=== PATIENT | female | born 1990 | race Two or more races ===

== ENCOUNTER 2016-11-16 17:00 | Emergency (ER) | payer MEDICAID ==
[~2016-11-16] VITALS: Ht 154.9 cm; Wt 57.2 kg
[2016-11-16 17:11] VITALS: BP 118/74
[2016-11-16 17:36] LABS: Basophils # (auto) 0 uL; Basophils % (auto) 0.6 % (0.0-2.0); Eosinophils # (auto) 0.1 uL; Eosinophils % (auto) 1.2 % (0.0-7.0); Hemoglobin 12.9 g/dL (12.2-16.2); Lymphocytes # (auto) 1.9 uL; Lymphocytes % (auto) 25.5 % (10.0-50.0); Mean Corpuscular Hemoglobin 30.8 pg (28.0-32.0); Mean Corpuscular Volume 93.4 fL (80.0-100.0); Mean Platelet Volume 7.7 fL (7.4-10.4); Monocytes # (auto) 0.5 uL; Monocytes % (auto) 7.3 % (0.0-12.0); Neutrophils # (auto) 4.9 uL; Neutrophils % (auto) 65.4 % (37.0-80.0); Platelet Count (auto) 329 10^3/uL (140-450); Red Cell Distribution Width 13.9 % (11.6-16.0); White Blood Cell 7.5 10^3/uL (4.4-10.8)
[2016-11-16 18:05] LABS: Albumin 3.9 g/dL (3.4-5.0); BUN/Creatinine Ratio 13.8; Calcium 8.3 mg/dL (8.5-10.1); Potassium 3.9 mmol/L (3.5-5.1)
[2016-11-16 18:08] LABS: Bilirubin, Total 0.5 mg/dL (0.2-1.0); Total Protein 7.5 g/dL (6.4-8.2)
== END 2016-11-16 20:08 | disposition home or self-care (01) ==
LOC: ER 17:06
DX: O02.0 Blighted ovum and nonhydatidiform mole (principal); Z3A.09 9 weeks gestation of pregnancy
CPT/HCPCS: 36415; 76801; 80053; 81002; 84702; 85025

== ENCOUNTER 2016-11-18 17:33 | Emergency (ER) | payer MEDICAID ==
[~2016-11-18] VITALS: Ht 154.9 cm; Wt 56.7 kg
[2016-11-19 01:01] LABS: Urine RBC None Seen /hpf (0 - 4)
[2016-11-19 01:15] VITALS: BP 108/64
[2016-11-19 01:29] LABS: Urine Bilirubin Negative (Negative); Urine Blood Negative /uL (Negative); Urine Color Yellow (Yellow); Urine Glucose Normal (Normal); Urine Ketone Negative (Negative); Urine Nitrite Negative (Negative); Urine Squamous Epithelial Cell FEW /hpf (<5); Urine Urobilinogen Normal (Negative); Urine pH 6.5 (5.0-8.0)
== END 2016-11-19 01:13 | disposition home or self-care (01) ==
LOC: ER 17:41
DX: O03.9 Complete or unspecified spontaneous abortion without complication (principal); Z3A.09 9 weeks gestation of pregnancy
CPT/HCPCS: 36415; 76801; 81001; 84702

== ENCOUNTER 2018-04-08 16:42 | Emergency (ER) | payer MEDICAID ==
[~2018-04-08] VITALS: Ht 157.5 cm; Wt 59.0 kg
[2018-04-08 17:17] VITALS: BP 115/82
== END 2018-04-08 18:32 | disposition left against medical advice (07) ==
LOC: ER 16:42
DX: O26.899 Other specified pregnancy related conditions, unspecified trimester (principal); R10.9 Unspecified abdominal pain; Z3A.00 Weeks of gestation of pregnancy not specified

== ENCOUNTER 2021-04-11 22:32 | Inpatient (IN) | payer MEDICAID ==
[~2021-04-11] VITALS: Ht 157.5 cm; Wt 62.3 kg
[2021-04-11 23:28] LABS: Eosinophils # (auto) 0 10 ^3/uL (0-0.8); Eosinophils % (auto) 0.1 % (0.0-7.0); Hemoglobin 9.9 g/dL (12.2-16.2); Lymphocytes # (auto) 0.8 10 ^3/uL (0.4-5.4); Monocytes # (auto) 0.6 10 ^3/uL (0-1.3); Neutrophils # (auto) 9.7 10 ^3/uL (1.6-8.6)
[2021-04-11 23:29] LABS: Basophils # (auto) 0.1 10 ^3/uL (0-0.2); Basophils % (auto) 0.8 % (0.0-2.0); Hematocrit 27.6 % (36.0-46.0); Mean Corpuscular Hemoglobin 39.5 pg (28.0-32.0); Mean Corpuscular Hgb Conc. 35.9 g/dL (32.0-36.0); Mean Corpuscular Volume 109.9 fL (80.0-100.0); Neutrophils % (auto) 87.1 % (37.0-80.0); Nucleated Red Blood Cells % 0.4 %; Platelet Count (auto) 124 10^3/uL (140-450); Red Blood Cells 2.51 10^6/uL (4.0-5.20); Red Cell Distribution Width 16.1 % (11.8-14.3); White Blood Cell 11.2 10^3/uL (4.4-10.8)
[2021-04-11 23:43] LABS: INR 3.27 (0.9-1.15); Partial Thromboplastin Time 37.8 sec (23.0-31.2)
[2021-04-11 23:47] LABS: Alanine Aminotransferase 84 U/L (13-56); Albumin 3.1 g/dL (3.4-5.0); Amylase 136 U/L (25-115); Anion Gap 21 (5-15); Aspartate Aminotransferase 420 U/L (15-37); BUN/Creatinine Ratio 17.4; Blood Urea Nitrogen 32 mg/dL (7-18); Calcium 8.9 mg/dL (8.5-10.1); Carbon Dioxide 28 mmol/L (21-32); Chloride 75 mmol/L (98-107); GFR African American 42 mL/min; GFR Non-African American 35 mL/min; Glucose 92 mg/dL (74-106); Lipase 742 U/L (73-393); Sodium 124 mmol/L (136-145)
[2021-04-11 23:52] LABS: Alkaline Phosphatase 228 U/L (45-117); Bilirubin, Total 14.6 mg/dL (0.2-1.0); Total Protein 7.2 g/dL (6.4-8.2)
[2021-04-11 23:53] LABS: Lactic Acid w/Reflex 8.9 mmol/L (0.4-2.0)
[2021-04-11 23:55] LABS: Potassium 2.6 mmol/L (3.5-5.1)
[2021-04-12] MEDS ORDERED: FOLIC ACID 1 MG in D5W 5% 50 ML INJ ONE (00:15)
[2021-04-12] MEDS ORDERED: THIAMINE 100mg/ml INJ (200mg/2ml VIAL) IV ONE (00:15)
[2021-04-12] MEDS ORDERED: ONDANSETRON HCL 4 MG/2 ML VIAL IV ONE (00:15)
[2021-04-12] MEDS ORDERED: POTASSIUM CHLORIDE 20 MEQ in D5W/LACTATED RINGERS 1,000 ML IV SCH (00:15)
[2021-04-12] MEDS ORDERED: D5W/LACTATED RINGERS 1,000 ML IV ONE (00:45)
[2021-04-12] MEDS ORDERED: POTASSIUM CHL 20MEQ/100ML 100 ML IV ONE (00:45)
[2021-04-12] MEDS ORDERED: FOLIC ACID 1 MG TAB PO ONE (00:45)
[2021-04-12] MEDS ORDERED: LACTATED RINGER'S 1,000 ML IV ONE (03:15)
[2021-04-12] MEDS ORDERED: POTASSIUM CHL 20MEQ/100ML 200 ML IV ONE (03:30)
[2021-04-12] MEDS: MORPHINE SULF INJ 2 MG/ML SYRINGE 1ML IV PRN ×2 (03:32→09:34)
[2021-04-12] MEDS: ONDANSETRON HCL 4 MG/2 ML VIAL IV PRN ×2 (03:32→09:30)
[2021-04-12] MEDS: POTASSIUM CHL 20MEQ/100ML 100 ML IV SCH ×2 (03:33→06:25)
[2021-04-12] MEDS: levoFLOXacin 500MG 100 ML IV SCH (03:35)
[2021-04-12] MEDS: metroNIDAZOLE 500MG/100ML 100 ML IV SCH ×3 (03:36→22:10)
[2021-04-12] MEDS: PANTOPRAZOLE 40 MG/10 ML VIAL INJ IV SCH ×3 (06:27→22:03)
[2021-04-12 07:47] VITALS: BP 90/59
[2021-04-12 08:12] LABS: Albumin 2.4 g/dL (3.4-5.0); Calcium 8.1 mg/dL (8.5-10.1); Magnesium 2.3 mg/dL (1.6-2.6); Potassium 3.1 mmol/L (3.5-5.1)
[2021-04-12 08:15] LABS: BUN/Creatinine Ratio 19.5; Bilirubin, Total 13.1 mg/dL (0.2-1.0); Total Protein 5.8 g/dL (6.4-8.2)
[2021-04-12 08:19] LABS: Basophils # (auto) 0.1 10 ^3/uL (0-0.2); Basophils % (auto) 1.3 % (0.0-2.0); Eosinophils # (auto) 0 10 ^3/uL (0-0.8); Eosinophils % (auto) 0.2 % (0.0-7.0); Hematocrit 22.5 % (36.0-46.0); Hemoglobin 8.1 g/dL (12.2-16.2); Lymphocytes # (auto) 0.8 10 ^3/uL (0.4-5.4); Lymphocytes % (auto) 7.9 % (10.0-50.0); Mean Corpuscular Hgb Conc. 35.9 g/dL (32.0-36.0); Mean Corpuscular Volume 108.9 fL (80.0-100.0); Monocytes # (auto) 0.6 10 ^3/uL (0-1.3); Monocytes % (auto) 5.9 % (0.0-12.0); Neutrophils # (auto) 8.8 10 ^3/uL (1.6-8.6); Neutrophils % (auto) 84.7 % (37.0-80.0); Nucleated Red Blood Cells % 0.3 %; Platelet Count (auto) 96 10^3/uL (140-450); Red Blood Cells 2.07 10^6/uL (4.0-5.20); White Blood Cell 10.4 10^3/uL (4.4-10.8)
[2021-04-12] MEDS ORDERED: PHYTONADIONE(VitK) ORAL Susp 10mg/10ml(1mg/ml) PO SCH (10:30)
[2021-04-12 13:00] VITALS: BP 99/44
[2021-04-12 13:13] LABS: Urine Bacteria FEW /hpf (None Seen); Urine Blood 1+ /uL (Negative); Urine Hyaline Cast MANY /lpf (0 - 2); Urine Mucus FEW (None Seen); Urine Specific Gravity 1.023 (1.001-1.035); Urine WBC 55 /hpf (0 - 5); Urine WBC Clumps PRESENT /hpf (None Seen)
[2021-04-12 13:26] LABS: Creatinine, Urine 296 mg/dL (30.0-125.0); Sodium Urine 5 mmol/L (40-220)
[2021-04-12 13:27] LABS: Barbiturate Scree,Urine NEGATIVE (NEGATIVE); Benzodiazephine Screen, Urine NEGATIVE (NEGATIVE); Cannabinoid Screen, Urine POSITIVE (NEGATIVE); Cocaine Screen, Urine NEGATIVE (NEGATIVE); Opiate Scree,Urine POSITIVE (NEGATIVE); Phencyclidine Screen, Urine NEGATIVE (NEGATIVE)
[2021-04-12 13:35] LABS: Amphetamine Screen, Urine NEGATIVE (NEGATIVE)
[2021-04-12] MEDS: FOLIC ACID 1 MG, MULTIPLE VITAMIN 10 ML, MAGNESIUM SULF SDV 50% 8 MEQ, THIAMINE INJ 100... INJ SCH ×5 (14:15)
[2021-04-12] MEDS ORDERED: POTASSIUM CHL 20 Meq TABLET PO ONE (14:30)
[2021-04-12 17:00] VITALS: BP 115/53
[2021-04-12] MEDS ORDERED: LORazepam 0.5 MG TAB PO PRN (17:45)
[2021-04-12] MEDS: PHYTONADIONE(VitK) ORAL Susp 10mg/10ml(1mg/ml) PO SCH (18:30)
[2021-04-12] MEDS ORDERED: POTASSIUM CHL 20 Meq TABLET PO PRN (18:30)
[2021-04-12] MEDS ORDERED: SODIUM CHLORIDE 0.9% 1,000 ML IV ONE (20:15)
[2021-04-12] MEDS ORDERED: LORazepam 2MG/ML-1ML VIAL IV PRN ×3 (20:30→21:45)
[2021-04-12 22:00] VITALS: BP 115/60
[2021-04-13] VITALS (9 sets, daily range): BP systolic 90–127; BP diastolic 46–78
[2021-04-13] MEDS: GABAPENTIN 300 MG CAP PO SCH ×4 (01:15→22:24)
[2021-04-13] MEDS: metroNIDAZOLE 500MG/100ML 100 ML IV SCH ×3 (06:00→22:23)
[2021-04-13] MEDS: PANTOPRAZOLE 40 MG/10 ML VIAL INJ IV SCH ×3 (06:00→22:24)
[2021-04-13 08:51] LABS: Basophils # (auto) 0 10 ^3/uL (0-0.2); Eosinophils # (auto) 0.1 10 ^3/uL (0-0.8); Hemoglobin 7.6 g/dL (12.2-16.2); Lymphocytes # (auto) 0.8 10 ^3/uL (0.4-5.4); Monocytes # (auto) 0.9 10 ^3/uL (0-1.3); White Blood Cell 8.8 10^3/uL (4.4-10.8)
[2021-04-13 08:52] LABS: Basophils % (auto) 0.5 % (0.0-2.0); Eosinophils % (auto) 0.9 % (0.0-7.0); Hematocrit 20.5 % (36.0-46.0); Mean Corpuscular Hemoglobin 40.2 pg (28.0-32.0); Mean Corpuscular Hgb Conc. 37.1 g/dL (32.0-36.0); Mean Corpuscular Volume 108.5 fL (80.0-100.0); Neutrophils % (auto) 79.6 % (37.0-80.0); Nucleated Red Blood Cells % 0.5 %; Platelet Count (auto) 108 10^3/uL (140-450); Red Blood Cells 1.89 10^6/uL (4.0-5.20)
[2021-04-13] MEDS: levoFLOXacin 500MG 100 ML IV SCH (09:03)
[2021-04-13 09:07] LABS: BUN/Creatinine Ratio 23.9; Calcium 7.5 mg/dL (8.5-10.1); Potassium 3.9 mmol/L (3.5-5.1)
[2021-04-13 09:23] LABS: INR 2.81 (0.9-1.15); Partial Thromboplastin Time 42.5 sec (23.0-31.2)
[2021-04-13] MEDS ORDERED: PANTOPRAZOLE 40 MG TAB PO SCH (10:00)
[2021-04-13] MEDS: PHYTONADIONE(VitK) ORAL Susp 10mg/10ml(1mg/ml) PO SCH (10:00)
[2021-04-13] MEDS ORDERED: POLYETHYLENE GLYCOL 17 GM PWDR PO ONE (11:30)
[2021-04-13] MEDS ORDERED: LACTULOSE 20Gm/30ML SOLN PO ONE (11:30)
[2021-04-13] MEDS ORDERED: chlordiazePOXIDE HCL 25 MG CAP PO PRN (11:30)
[2021-04-13] MEDS: MIDODRINE HCL 10 MG TAB PO SCH ×2 (12:05→18:27)
[2021-04-13] MEDS: FOLIC ACID 1 MG, MULTIPLE VITAMIN 10 ML, MAGNESIUM SULF SDV 50% 8 MEQ, THIAMINE INJ 100... INJ SCH ×5 (13:58)
[2021-04-13 14:14] LABS: Eosinophils # (auto) 0.1 10 ^3/uL (0-0.8); Hemoglobin 8.3 g/dL (12.2-16.2); Lymphocytes # (auto) 0.8 10 ^3/uL (0.4-5.4)
[2021-04-13 14:16] LABS: Basophils # (auto) 0 10 ^3/uL (0-0.2); Basophils % (auto) 0.4 % (0.0-2.0); Eosinophils % (auto) 0.7 % (0.0-7.0); Lymphocytes % (auto) 7.7 % (10.0-50.0); Mean Corpuscular Hemoglobin 39.6 pg (28.0-32.0); Mean Corpuscular Hgb Conc. 36.3 g/dL (32.0-36.0); Monocytes # (auto) 0.9 10 ^3/uL (0-1.3); Monocytes % (auto) 8.7 % (0.0-12.0); Neutrophils # (auto) 8.6 10 ^3/uL (1.6-8.6); Neutrophils % (auto) 82.5 % (37.0-80.0); Nucleated Red Blood Cells % 0.6 %; Platelet Count (auto) 126 10^3/uL (140-450); Red Blood Cells 2.11 10^6/uL (4.0-5.20); Red Cell Distribution Width 15.9 % (11.8-14.3); White Blood Cell 10.4 10^3/uL (4.4-10.8)
[2021-04-13 14:22] LABS: Albumin 2.4 g/dL (3.4-5.0); Bilirubin, Direct 12.3 mg/dL (0-0.2)
[2021-04-13 14:25] LABS: Bilirubin, Total 16.5 mg/dL (0.2-1.0); Total Protein 6.1 g/dL (6.4-8.2)
[2021-04-13] MEDS ORDERED: MID10T PO (19:16)
[2021-04-13] MEDS ORDERED: LACT10SO3 PO (19:16)
[2021-04-13] MEDS ORDERED: PANT40T PO (19:16)
[2021-04-13] MEDS ORDERED: GABA300C10 PO (19:16)
[2021-04-13] MEDS ORDERED: THIA50CA PO (19:16)
[2021-04-13] MEDS ORDERED: FOLI1TAB6 PO (19:16)
[2021-04-13] MEDS ORDERED: METR500T PO (19:16)
[2021-04-13] MEDS ORDERED: LEVO500T31 PO (19:16)
[2021-04-14 11:08] LABS: Hepatitis A Ab IgM Negative; Hepatitis B Core IgM Negative; Hepatitis B Surface Antigen Negative (Negative); Hepatitis C Antibody Negative (Negative)
== END 2021-04-13 23:00 | disposition home health service (06) | DRG 282 ==
LOC: ER 22:32 → TELE 04-12 03:12 → TELE-WESTW 04-12 07:40
PROVIDERS: ADMIT Hospitalist; ATTEND Hospitalist
PROC: 30233K1 Transfusion of Nonautologous Frozen Plasma into Peripheral Vein, Percutaneous Approach (ICD-10-PCS; principal; 2021-04-13)
DX: K85.90 Acute pancreatitis without necrosis or infection, unspecified (principal); N17.0 Acute kidney failure with tubular necrosis; K76.7 Hepatorenal syndrome; K82.1 Hydrops of gallbladder; D68.9 Coagulation defect, unspecified; E87.70 Fluid overload, unspecified; E88.09 Other disorders of plasma-protein metabolism, not elsewhere classified; K70.11 Alcoholic hepatitis with ascites; E87.1 Hypo-osmolality and hyponatremia; K52.9 Noninfective gastroenteritis and colitis, unspecified; Z20.822 Contact with and (suspected) exposure to COVID-19; F10.20 Alcohol dependence, uncomplicated; E87.6 Hypokalemia; D64.9 Anemia, unspecified; F17.210 Nicotine dependence, cigarettes, uncomplicated; K76.0 Fatty (change of) liver, not elsewhere classified; Z79.899 Other long term (current) drug therapy
CPT/HCPCS: 36415; 74176; 76700; 80048; 80053; 80074; 80076; 80307; 80320; 81001; 82150; 82270; 82550; 82570; 83605; 83690; 83735; 84300; 84484; 84702; 85025; 85610; 85730; 86850; 86900; 86901; 87040; 87086; 87426; 93005; 96365; 96366; 96375; 99291; C9113; G0378; J1956; J2405; J3480; J3490; J7060

== ENCOUNTER 2021-04-16 22:21 | Emergency (ER) | payer MEDICAID ==
[~2021-04-16] VITALS: Ht 157.5 cm; Wt 61.7 kg
[~2021-04-16 22:21] MED LIST: FOLI1TAB6 PO; GABA300C10 PO; LACT10SO3 PO; LEVO500T31 PO; METR500T PO; MID10T PO; PANT40T PO; THIA50CA PO
[2021-04-16 23:00] LABS: Basophils # (auto) 0.1 10 ^3/uL (0-0.2); Eosinophils # (auto) 0 10 ^3/uL (0-0.8); Eosinophils % (auto) 0.2 % (0.0-7.0); Hemoglobin 9.2 g/dL (12.2-16.2); Nucleated Red Blood Cells % 0.3 %; Red Blood Cells 2.24 10^6/uL (4.0-5.20)
[2021-04-16 23:03] LABS: Basophils % (auto) 0.6 % (0.0-2.0); Hematocrit 25.1 % (36.0-46.0); Lymphocytes # (auto) 0.6 10 ^3/uL (0.4-5.4); Lymphocytes % (auto) 3.6 % (10.0-50.0); Mean Corpuscular Hgb Conc. 36.7 g/dL (32.0-36.0); Mean Corpuscular Volume 111.8 fL (80.0-100.0); Monocytes # (auto) 1.7 10 ^3/uL (0-1.3); Monocytes % (auto) 10.6 % (0.0-12.0); Platelet Count (auto) 182 10^3/uL (140-450); Red Cell Distribution Width 17.5 % (11.8-14.3); White Blood Cell 16.4 10^3/uL (4.4-10.8)
[2021-04-16 23:19] LABS: INR 3.34 (0.9-1.15); Partial Thromboplastin Time 45.4 sec (23.0-31.2)
[2021-04-16 23:35] LABS: Albumin 2.3 g/dL (3.4-5.0); Calcium 7.7 mg/dL (8.5-10.1); Potassium 3.7 mmol/L (3.5-5.1)
[2021-04-16 23:37] LABS: Bilirubin, Total 21.4 mg/dL (0.2-1.0)
[2021-04-17] MEDS ORDERED: OXYMETAZOLINE HCL 0.05 % NASAL SPRAY 15ML EACHNOSTRI ONE (00:15)
[2021-04-17] MEDS ORDERED: LACTATED RINGER'S 1,000 ML IV ONE (00:15)
[2021-04-17] MEDS ORDERED: LORazepam 2MG/ML-1ML VIAL ONE (03:43)
[2021-04-17] MEDS ORDERED: LORazepam 2MG/ML-1ML VIAL IV ONE (04:00)
[2021-04-17] MEDS ORDERED: levETIRAcetam 500 MG/5ML INJ IV ONE (04:47)
[2021-04-17] MEDS ORDERED: GABA300C10 PO (12:44)
[2021-04-17] MEDS ORDERED: LACT10SO3 PO (12:44)
[2021-04-17 12:46] VITALS: BP 102/58
== END 2021-04-17 13:25 | disposition home or self-care (01) ==
LOC: ER 22:24
DX: R04.0 Epistaxis (principal); K62.5 Hemorrhage of anus and rectum; D68.9 Coagulation defect, unspecified; R51.9 Headache, unspecified; Z87.442 Personal history of urinary calculi
CPT/HCPCS: 36415; 70450; 80053; 85025; 85610; 85730; 86850; 86900; 86901; 87426; 96361; 96365; 96375; 99285; J1953; J2060; J7060

== ENCOUNTER 2021-04-21 20:37 | Inpatient (IN) | payer MEDICAID ==
[~2021-04-21] VITALS: Ht 157.5 cm; Wt 80.4 kg
[2021-04-21] MEDS ORDERED: SODIUM CHLORIDE 0.9% 500 ML IVB ONE (21:00)
[2021-04-21 22:11] LABS: Eosinophils # (auto) 0 10 ^3/uL (0-0.8); Eosinophils % (auto) 0.1 % (0.0-7.0); Nucleated Red Blood Cells % 0.1 %; White Blood Cell 24.6 10^3/uL (4.4-10.8)
[2021-04-21 22:14] LABS: Basophils # (auto) 0.1 10 ^3/uL (0-0.2); Basophils % (auto) 0.3 % (0.0-2.0); Hematocrit 22.2 % (36.0-46.0); Hemoglobin 8.3 g/dL (12.2-16.2); Mean Corpuscular Hemoglobin 41.9 pg (28.0-32.0); Mean Corpuscular Hgb Conc. 37.3 g/dL (32.0-36.0); Mean Corpuscular Volume 112.2 fL (80.0-100.0); Monocytes # (auto) 1.5 10 ^3/uL (0-1.3); Neutrophils % (auto) 89.6 % (37.0-80.0); Platelet Count (auto) 235 10^3/uL (140-450); Red Blood Cells 1.98 10^6/uL (4.0-5.20)
[2021-04-21 22:15] LABS: Red Cell Distribution Width 21.6 % (11.8-14.3)
[2021-04-21 22:28] LABS: Albumin 1.9 g/dL (3.4-5.0); Calcium 7.6 mg/dL (8.5-10.1); Magnesium 1.7 mg/dL (1.6-2.6); Potassium 3.6 mmol/L (3.5-5.1)
[2021-04-21 22:32] LABS: Bilirubin, Total 18.5 mg/dL (0.2-1.0); INR 2.62 (0.9-1.15); Partial Thromboplastin Time 52.4 sec (23.0-31.2); Total Protein 5.8 g/dL (6.4-8.2)
[2021-04-21] MEDS ORDERED: NITROGLYCERIN 0.4 MG SL TAB SL PRN (23:30)
[2021-04-21] MEDS ORDERED: SODIUM CHLORIDE 0.9% 1,000 ML IV ONE (23:30)
[2021-04-21] MEDS ORDERED: POTASSIUM CHL 20 Meq TABLET PO ONE (23:30)
[2021-04-21] MEDS ORDERED: ONDANSETRON HCL 4 MG/2 ML VIAL IV PRN (23:30)
[2021-04-21] MEDS ORDERED: MORPHINE SULF INJ 2 MG/ML SYRINGE 1ML IV PRN (23:30)
[2021-04-21] MEDS ORDERED: LORazepam 2MG/ML-1ML VIAL IV PRN (23:30)
[2021-04-22 00:45] VITALS: BP 93/52
[2021-04-22 02:03] LABS: Urine Amorphous Crystal FEW /hpf (None Seen); Urine Bacteria FEW /hpf (None Seen); Urine Blood TRACE /uL (Negative); Urine Hyaline Cast MOD /lpf (0 - 2); Urine Mucus FEW (None Seen); Urine Specific Gravity 1.019 (1.001-1.035); Urine WBC 11 /hpf (0 - 5)
[2021-04-22 05:00] VITALS: BP 88/48
[2021-04-22 05:55] LABS: Basophils # (auto) 0 10 ^3/uL (0-0.2); Basophils % (auto) 0.2 % (0.0-2.0); Eosinophils # (auto) 0 10 ^3/uL (0-0.8); Hemoglobin 7.4 g/dL (12.2-16.2); Neutrophils # (auto) 17.4 10 ^3/uL (1.6-8.6); Nucleated Red Blood Cells % 0.1 %
[2021-04-22 05:57] LABS: Eosinophils % (auto) 0.2 % (0.0-7.0); Hematocrit 20.3 % (36.0-46.0); Lymphocytes # (auto) 0.9 10 ^3/uL (0.4-5.4); Lymphocytes % (auto) 4.5 % (10.0-50.0); Mean Corpuscular Hemoglobin 41.4 pg (28.0-32.0); Mean Corpuscular Hgb Conc. 36.3 g/dL (32.0-36.0); Mean Corpuscular Volume 114.2 fL (80.0-100.0); Monocytes # (auto) 1.3 10 ^3/uL (0-1.3); Monocytes % (auto) 6.6 % (0.0-12.0); Neutrophils % (auto) 88.5 % (37.0-80.0); Platelet Count (auto) 208 10^3/uL (140-450); Red Blood Cells 1.78 10^6/uL (4.0-5.20); White Blood Cell 19.7 10^3/uL (4.4-10.8)
[2021-04-22 06:09] LABS: Red Cell Distribution Width 21.8 % (11.8-14.3)
[2021-04-22 06:16] LABS: Potassium 3.9 mmol/L (3.5-5.1)
[2021-04-22 06:22] LABS: Albumin 1.7 g/dL (3.4-5.0); BUN/Creatinine Ratio 17.5; Total Protein 5.1 g/dL (6.4-8.2)
[2021-04-22 09:00] VITALS: BP 90/54
[2021-04-22] MEDS ORDERED: LACTULOSE 20Gm/30ML SOLN PO PRN (12:30)
[2021-04-22 13:00] VITALS: BP 93/50
[2021-04-22] MEDS: cefTRIAXone 1GM/50ML D5W 50 ML IV SCH (13:34)
[2021-04-22 17:00] VITALS: BP 92/51
[2021-04-22] MEDS ORDERED: LORazepam 2MG/ML-1ML VIAL IV PRN (22:45)
[2021-04-22 23:48] VITALS: BP 94/55
[2021-04-23 05:54] VITALS: BP 91/54
[2021-04-23 09:00] VITALS: BP 88/48
[2021-04-23] MEDS: cefTRIAXone 1GM/50ML D5W 50 ML IV SCH (09:42)
[2021-04-23] MEDS: PANTOPRAZOLE 40 MG/10 ML VIAL INJ IV SCH (11:37)
[2021-04-23] MEDS: methylPREDNISolone SOD SUCC 40 MG/ML VL IV SCH (11:37)
[2021-04-23] MEDS ORDERED: FOLIC ACID 1 MG, MULTIPLE VITAMIN 10 ML, MAGNESIUM SULF SDV 50% 8 MEQ, THIAMINE INJ 100... INJ SCH ×5 (12:00)
[2021-04-23 12:13] LABS: Basophils # (auto) 0.1 10 ^3/uL (0-0.2); Basophils % (auto) 0.7 % (0.0-2.0); Eosinophils # (auto) 0.1 10 ^3/uL (0-0.8); Eosinophils % (auto) 0.3 % (0.0-7.0); Hematocrit 20.9 % (36.0-46.0); Hemoglobin 7.4 g/dL (12.2-16.2); Lymphocytes # (auto) 0.8 10 ^3/uL (0.4-5.4); Lymphocytes % (auto) 4.7 % (10.0-50.0); Mean Corpuscular Hemoglobin 40.7 pg (28.0-32.0); Mean Corpuscular Hgb Conc. 35.4 g/dL (32.0-36.0); Mean Corpuscular Volume 114.9 fL (80.0-100.0); Monocytes # (auto) 1.2 10 ^3/uL (0-1.3); Monocytes % (auto) 6.8 % (0.0-12.0); Neutrophils # (auto) 15.9 10 ^3/uL (1.6-8.6); Neutrophils % (auto) 87.5 % (37.0-80.0); Platelet Count (auto) 208 10^3/uL (140-450); Red Blood Cells 1.82 10^6/uL (4.0-5.20); White Blood Cell 18.2 10^3/uL (4.4-10.8)
[2021-04-23 12:26] LABS: Potassium 3.9 mmol/L (3.5-5.1)
[2021-04-23 12:31] LABS: Albumin 1.6 g/dL (3.4-5.0); Bilirubin, Total 16.8 mg/dL (0.2-1.0); Calcium 7.1 mg/dL (8.5-10.1); Total Protein 5.3 g/dL (6.4-8.2)
[2021-04-23 13:00] VITALS: BP 89/39
[2021-04-23 17:00] VITALS: BP 98/59
[2021-04-23] MEDS: FUROSEMIDE 20 MG TAB PO SCH (18:48)
[2021-04-23] MEDS: SPIRONOLACTONE 25 MG TAB PO SCH (18:48)
[2021-04-23] MEDS ORDERED: PHYTONADIONE (VIT K)10 MG/ML 1ML VIAL SUBCUT ONE (19:00)
[2021-04-23] MEDS: chlordiazePOXIDE HCL 25 MG CAP PO PRN (20:06)
[2021-04-23 22:36] VITALS: BP 95/63
[2021-04-24] VITALS (7 sets, daily range): BP systolic 89–101; BP diastolic 52–63
[2021-04-24] MEDS: FUROSEMIDE 20 MG TAB PO SCH ×2 (05:13→17:54)
[2021-04-24] MEDS: SPIRONOLACTONE 25 MG TAB PO SCH ×2 (05:14→17:53)
[2021-04-24 07:33] LABS: Eosinophils # (auto) 0 10 ^3/uL (0-0.8); Hematocrit 22.4 % (36.0-46.0); Hemoglobin 7.9 g/dL (12.2-16.2); Mean Corpuscular Hemoglobin 40.5 pg (28.0-32.0); Mean Corpuscular Hgb Conc. 35.2 g/dL (32.0-36.0); Mean Corpuscular Volume 114.9 fL (80.0-100.0); Nucleated Red Blood Cells % 0.1 %; Platelet Count (auto) 203 10^3/uL (140-450); Red Blood Cells 1.95 10^6/uL (4.0-5.20)
[2021-04-24 07:37] LABS: Basophils # (auto) 0 10 ^3/uL (0-0.2); Basophils % (auto) 0.1 % (0.0-2.0); Lymphocytes # (auto) 8.7 10 ^3/uL (0.4-5.4); Lymphocytes % (auto) 46.4 % (10.0-50.0); Monocytes # (auto) 0.6 10 ^3/uL (0-1.3); Monocytes % (auto) 3.2 % (0.0-12.0); Neutrophils # (auto) 9.4 10 ^3/uL (1.6-8.6); Neutrophils % (auto) 50.3 % (37.0-80.0); White Blood Cell 18.7 10^3/uL (4.4-10.8)
[2021-04-24 07:38] LABS: Red Cell Distribution Width 22.6 % (11.8-14.3)
[2021-04-24 07:46] LABS: INR 2.83 (0.9-1.15)
[2021-04-24 07:51] LABS: Albumin 1.8 g/dL (3.4-5.0); BUN/Creatinine Ratio 26.8; Calcium 7.4 mg/dL (8.5-10.1); Potassium 4.1 mmol/L (3.5-5.1)
[2021-04-24 08:03] LABS: Bilirubin, Total 17.1 mg/dL (0.2-1.0); Total Protein 5.7 g/dL (6.4-8.2)
[2021-04-24] MEDS: PANTOPRAZOLE 40 MG/10 ML VIAL INJ IV SCH (09:19)
[2021-04-24] MEDS: cefTRIAXone 1GM/50ML D5W 50 ML IV SCH (09:19)
[2021-04-24] MEDS: methylPREDNISolone SOD SUCC 40 MG/ML VL IV SCH ×2 (09:20→21:40)
[2021-04-25 05:21] VITALS: BP 98/58
[2021-04-25] MEDS: SPIRONOLACTONE 25 MG TAB PO SCH ×2 (05:58→17:34)
[2021-04-25] MEDS: FUROSEMIDE 20 MG TAB PO SCH ×2 (05:59→17:37)
[2021-04-25 07:58] LABS: Albumin 1.7 g/dL (3.4-5.0); Calcium 7.3 mg/dL (8.5-10.1); Potassium 4.2 mmol/L (3.5-5.1)
[2021-04-25 08:04] LABS: BUN/Creatinine Ratio 34.8; Total Protein 5.5 g/dL (6.4-8.2)
[2021-04-25 09:00] VITALS: BP 90/57
[2021-04-25] MEDS: PANTOPRAZOLE 40 MG/10 ML VIAL INJ IV SCH (09:37)
[2021-04-25] MEDS: methylPREDNISolone SOD SUCC 40 MG/ML VL IV SCH ×2 (09:37→22:00)
[2021-04-25] MEDS: cefTRIAXone 1GM/50ML D5W 50 ML IV SCH (09:37)
[2021-04-25 13:00] VITALS: BP 95/56
[2021-04-25 17:00] VITALS: BP 103/70
[2021-04-25 22:00] VITALS: BP 97/58
[2021-04-26 05:00] VITALS: BP 93/55
[2021-04-26] MEDS: FUROSEMIDE 20 MG TAB PO SCH ×2 (06:15→17:49)
[2021-04-26] MEDS: SPIRONOLACTONE 25 MG TAB PO SCH ×2 (06:35→17:48)
[2021-04-26 07:25] LABS: Hematocrit 21.6 % (36.0-46.0); Hemoglobin 7.7 g/dL (12.2-16.2); Mean Corpuscular Hemoglobin 41.9 pg (28.0-32.0); Mean Corpuscular Hgb Conc. 35.8 g/dL (32.0-36.0); Mean Corpuscular Volume 117.1 fL (80.0-100.0); Platelet Count (auto) 176 10^3/uL (140-450); Red Blood Cells 1.84 10^6/uL (4.0-5.20); White Blood Cell 15.1 10^3/uL (4.4-10.8)
[2021-04-26 07:30] LABS: Red Cell Distribution Width 22.3 % (11.8-14.3)
[2021-04-26 07:32] LABS: Basophils % (manual) 0 (0.0-2.0); Blast Cells 0; Eosinophils % (manual) 0 (0-7); Metamyelocytes % 0; Myelocytes % 0; Promyelocytes % 0; Reactive Lymphocytes 0
[2021-04-26 07:38] LABS: Albumin 1.7 g/dL (3.4-5.0); Calcium 7.4 mg/dL (8.5-10.1); Magnesium 1.8 mg/dL (1.6-2.6)
[2021-04-26 07:44] LABS: BUN/Creatinine Ratio 35.1; Bilirubin, Total 11.8 mg/dL (0.2-1.0); Total Protein 5.5 g/dL (6.4-8.2)
[2021-04-26] MEDS: cefTRIAXone 1GM/50ML D5W 50 ML IV SCH (08:00)
[2021-04-26 09:00] VITALS: BP 101/58
[2021-04-26 09:26] LABS: Band Neutrophils % (manual) 3; Lymphocytes % (manual) 5 (10.0-50.0); Monocytes % (manual) 1 (0-12)
[2021-04-26] MEDS: methylPREDNISolone SOD SUCC 40 MG/ML VL IV SCH (10:17)
[2021-04-26] MEDS: PANTOPRAZOLE 40 MG/10 ML VIAL INJ IV SCH (10:17)
[2021-04-26] MEDS: PHYTONADIONE (VIT K)10 MG/ML 1ML VIAL SUBCUT SCH (12:41)
[2021-04-26 13:00] VITALS: BP 101/61
[2021-04-26 17:00] VITALS: BP 106/65
[2021-04-26 22:00] VITALS: BP 101/54
[2021-04-26] MEDS: chlordiazePOXIDE HCL 25 MG CAP PO PRN (22:45)
[2021-04-27 06:18] VITALS: BP 111/71
[2021-04-27] MEDS: SPIRONOLACTONE 25 MG TAB PO SCH (06:31)
[2021-04-27] MEDS: FUROSEMIDE 20 MG TAB PO SCH (06:32)
[2021-04-27 08:41] LABS: INR 1.54 (0.9-1.15)
[2021-04-27 08:56] LABS: Albumin 1.9 g/dL (3.4-5.0); Calcium 7.9 mg/dL (8.5-10.1); Potassium 4.3 mmol/L (3.5-5.1)
[2021-04-27 09:00] VITALS: BP 101/54
[2021-04-27 09:01] LABS: BUN/Creatinine Ratio 37.7
[2021-04-27] MEDS: cefTRIAXone 1GM/50ML D5W 50 ML IV SCH (09:28)
[2021-04-27] MEDS: PANTOPRAZOLE 40 MG/10 ML VIAL INJ IV SCH (09:29)
[2021-04-27] MEDS: PHYTONADIONE (VIT K)10 MG/ML 1ML VIAL SUBCUT SCH (09:29)
[2021-04-27] MEDS ORDERED: predniSONE 20 MG TAB PO SCH (10:00)
[2021-04-27 12:39] VITALS: BP 111/71
== END 2021-04-27 13:08 | disposition home or self-care (01) | DRG 280 ==
LOC: ER 20:37 → TELE 23:17 → TELE-EAST 23:52
PROVIDERS: ADMIT Hospitalist; ATTEND Hospitalist
DX: K70.11 Alcoholic hepatitis with ascites (principal); K70.31 Alcoholic cirrhosis of liver with ascites; N17.0 Acute kidney failure with tubular necrosis; G93.41 Metabolic encephalopathy; K72.90 Hepatic failure, unspecified without coma; K81.0 Acute cholecystitis; E88.09 Other disorders of plasma-protein metabolism, not elsewhere classified; G40.909 Epilepsy, unspecified, not intractable, without status epilepticus; F10.239 Alcohol dependence with withdrawal, unspecified; N39.0 Urinary tract infection, site not specified; D53.9 Nutritional anemia, unspecified; F17.200 Nicotine dependence, unspecified, uncomplicated; K76.0 Fatty (change of) liver, not elsewhere classified; K82.8 Other specified diseases of gallbladder; Z80.9 Family history of malignant neoplasm, unspecified; Z87.442 Personal history of urinary calculi; Z71.41 Alcohol abuse counseling and surveillance of alcoholic; Z20.822 Contact with and (suspected) exposure to COVID-19; D68.4 Acquired coagulation factor deficiency
CPT/HCPCS: 36415; 70450; 70551; 76700; 76705; 78226; 80053; 81001; 81025; 82140; 83036; 83540; 83550; 83690; 83735; 84443; 85007; 85025; 85027; 85610; 85730; 86038; 87081; 87426; 93005; 96360; 96361; C9113; G0378; J0696; J3430; J7060

== ENCOUNTER 2022-08-05 18:48 | Inpatient (IN) | payer MEDICAID ==
[~2022-08-05] VITALS: Ht 157.5 cm; Wt 71.0 kg
[~2022-08-05 18:48] MED LIST changes: -LEVO500T31 PO; -METR500T PO
[2022-08-05 20:20] LABS: Urine Bacteria NONE SEEN /hpf (None Seen); Urine Blood Negative /uL (Negative); Urine Specific Gravity 1.014 (1.001-1.035); Urine WBC 2 /hpf (0 - 5)
[2022-08-05 20:33] LABS: INR 1.66 (0.9-1.15); Partial Thromboplastin Time 29.1 sec (24.6-33.4)
[2022-08-05 20:41] LABS: Alcohol, Urine < 3.0 mg/dL (0-10); Barbiturate Scree,Urine NEGATIVE (NEGATIVE); Benzodiazephine Screen, Urine NEGATIVE (NEGATIVE); Cannabinoid Screen, Urine POSITIVE (NEGATIVE); Cocaine Screen, Urine NEGATIVE (NEGATIVE); Opiate Scree,Urine NEGATIVE (NEGATIVE); Phencyclidine Screen, Urine NEGATIVE (NEGATIVE)
[2022-08-05 20:47] LABS: Amphetamine Screen, Urine NEGATIVE (NEGATIVE)
[2022-08-05 20:52] LABS: Albumin 2.4 g/dL (3.4-5.0); Calcium 7.8 mg/dL (8.5-10.1)
[2022-08-05 20:56] LABS: BUN/Creatinine Ratio 9.5; Bilirubin, Total 4.4 mg/dL (0.2-1.0); Total Protein 6.5 g/dL (6.4-8.2)
[2022-08-05 20:59] LABS: Potassium 2.7 mmol/L (3.5-5.1)
[2022-08-05 21:22] LABS: Basophils % (auto) 1.6 % (0.0-2.0); Eosinophils % (auto) 0.8 % (0.0-7.0); Lymphocytes % (auto) 18.4 % (10.0-50.0); Monocytes % (auto) 8.1 % (0.0-12.0); Neutrophils % (auto) 71.1 % (37.0-80.0); Nucleated Red Blood Cells % 0.5 %; White Blood Cell 6.7 10^3/uL (4.4-10.8)
[2022-08-05 21:23] LABS: Basophils # (auto) 0.1 10 ^3/uL (0-0.2); Eosinophils # (auto) 0.1 10 ^3/uL (0-0.8); Lymphocytes # (auto) 1.2 10 ^3/uL (0.4-5.4); Mean Corpuscular Hemoglobin 18.9 pg (28.0-32.0); Mean Corpuscular Volume 65.3 fL (80.0-100.0); Monocytes # (auto) 0.5 10 ^3/uL (0-1.3); Neutrophils # (auto) 4.7 10 ^3/uL (1.6-8.6); Red Blood Cells 1.46 10^6/uL (4.0-5.20)
[2022-08-05 21:24] LABS: Hematocrit 9.5 % (36.0-46.0); Mean Corpuscular Hgb Conc. 28.9 g/dL (32.0-36.0); Red Cell Distribution Width 24.5 % (11.8-14.3)
[2022-08-05 21:37] LABS: Hemoglobin 2.8 g/dL (12.2-16.2)
[2022-08-05] MEDS ORDERED: POTASSIUM EFFERVESENT TAB 25 MEQ PO ONE (21:45)
[2022-08-05 22:45] LABS: Lactic Acid w/Reflex 2.9 mmol/L (0.4-2.0)
[2022-08-05 23:48] VITALS: BP 113/63
[2022-08-05 23:50] VITALS: BP 113/63
[2022-08-06 00:05] VITALS: BP 108/59
[2022-08-06] MEDS ORDERED: ONDANSETRON HCL 4 MG/2 ML VIAL IV PRN (00:30)
[2022-08-06] MEDS ORDERED: DOCUSATE SOD 100 MG CAP PO PRN (00:30)
[2022-08-06] MEDS ORDERED: ACETAMINOPHEN 325 MG TAB PO PRN (00:30)
[2022-08-06] MEDS ORDERED: cefTRIAXone 1GM/50ML D5W 50 ML IV ONE (00:30)
[2022-08-06] MEDS ORDERED: ONDANSETRON ODT 4 MG TAB PO ONE (00:45)
[2022-08-06] MEDS ORDERED: NITROGLYCERIN 0.4 MG SL TAB SL PRN (01:00)
[2022-08-06] MEDS ORDERED: MORPHINE SULFATE INJ 2 MG/ml SYRG IV PRN (01:00)
[2022-08-06 01:30] VITALS: BP 108/66
[2022-08-06] MEDS: ALBUMIN 25% 100 ML IV ONE ×2 (01:55→06:09)
[2022-08-06] MEDS: POTASSIUM CHL 20MEQ/100ML 100 ML IV SCH ×2 (01:55→07:12)
[2022-08-06 03:06] LABS: Hematocrit 15.7 % (36.0-46.0)
[2022-08-06] MEDS: LACTULOSE 20Gm/30ML SOLN PO SCH ×6 (03:28→23:31)
[2022-08-06 03:30] LABS: Hemoglobin 5.1 g/dL (12.2-16.2)
[2022-08-06 04:08] VITALS: BP 103/56
[2022-08-06 04:23] VITALS: BP 99/45
[2022-08-06 06:00] VITALS: BP 125/63
[2022-08-06] MEDS: SODIUM CHLOR 0.9% PF (SALINE LOCK) 10ML VIAL/SYR IV SCH ×3 (06:09→23:31)
[2022-08-06] MEDS ORDERED: POTASSIUM CHL 20MEQ/100ML 100 ML IV ONE (07:11)
[2022-08-06 07:16] LABS: Mean Corpuscular Volume 77.7 fL (80.0-100.0)
[2022-08-06 07:19] LABS: Basophils # (auto) 0 10 ^3/uL (0-0.2); Basophils % (auto) 0.7 % (0.0-2.0); Eosinophils # (auto) 0 10 ^3/uL (0-0.8); Eosinophils % (auto) 0.7 % (0.0-7.0); Hematocrit 18.3 % (36.0-46.0); Lymphocytes # (auto) 0.9 10 ^3/uL (0.4-5.4); Lymphocytes % (auto) 15.8 % (10.0-50.0); Mean Corpuscular Hemoglobin 26.4 pg (28.0-32.0); Monocytes # (auto) 0.5 10 ^3/uL (0-1.3); Monocytes % (auto) 9.1 % (0.0-12.0); Neutrophils # (auto) 4.4 10 ^3/uL (1.6-8.6); Neutrophils % (auto) 73.7 % (37.0-80.0); Nucleated Red Blood Cells % 0.6 %; Red Blood Cells 2.36 10^6/uL (4.0-5.20)
[2022-08-06 07:28] LABS: Albumin 2.5 g/dL (3.4-5.0); Calcium 7.4 mg/dL (8.5-10.1); Potassium 3.2 mmol/L (3.5-5.1)
[2022-08-06 07:32] LABS: Bilirubin, Total 6.2 mg/dL (0.2-1.0); Total Protein 5.7 g/dL (6.4-8.2)
[2022-08-06 08:48] LABS: Red Cell Distribution Width 27.7 % (11.8-14.3)
[2022-08-06 08:53] LABS: Hemoglobin 6.2 g/dL (12.2-16.2)
[2022-08-06] MEDS: FAMOTIDINE (10MG/ML) 2ML VL IV SCH (10:47)
[2022-08-06] MEDS: FOLIC ACID 1 MG in D5W 5% 50 ML INJ SCH (10:47)
[2022-08-06] MEDS: THIAMINE 100mg/ml INJ (200mg/2ml VIAL) IV SCH (10:47)
[2022-08-06] MEDS: ALBUMIN 25% 100 ML IV SCH ×2 (13:39→21:58)
[2022-08-06] MEDS: HYDROcodone-ACET 5/325MG TAB PO PRN (19:55)
[2022-08-06] MEDS ORDERED: cefTRIAXone 1GM/50ML D5W 50 ML IV SCH (21:00)
[2022-08-06] MEDS: rifAXIMin 550 MG TAB PO SCH (23:31)
[2022-08-07] VITALS (8 sets, daily range): BP systolic 102–121; BP diastolic 61–71
[2022-08-07] MEDS: LACTULOSE 20Gm/30ML SOLN PO SCH ×5 (03:01→18:07)
[2022-08-07] MEDS: ALBUMIN 25% 100 ML IV SCH (05:07)
[2022-08-07 06:27] LABS: Albumin 2.9 g/dL (3.4-5.0); Basophils # (auto) 0 10 ^3/uL (0-0.2); Calcium 7.7 mg/dL (8.5-10.1); Eosinophils # (auto) 0.1 10 ^3/uL (0-0.8); Lymphocytes # (auto) 0.9 10 ^3/uL (0.4-5.4); Monocytes # (auto) 0.4 10 ^3/uL (0-1.3); Potassium 3.4 mmol/L (3.5-5.1); Red Blood Cells 2.46 10^6/uL (4.0-5.20)
[2022-08-07 06:29] LABS: Basophils % (auto) 0.8 % (0.0-2.0); Eosinophils % (auto) 3.2 % (0.0-7.0); Hematocrit 19.5 % (36.0-46.0); Mean Corpuscular Hemoglobin 25.5 pg (28.0-32.0); Mean Corpuscular Hgb Conc. 32.2 g/dL (32.0-36.0); Mean Corpuscular Volume 79.4 fL (80.0-100.0); Monocytes % (auto) 8.5 % (0.0-12.0); Neutrophils # (auto) 3.1 10 ^3/uL (1.6-8.6); Neutrophils % (auto) 68.5 % (37.0-80.0); Nucleated Red Blood Cells % 0.3 %; Red Cell Distribution Width 26.9 % (11.8-14.3); White Blood Cell 4.5 10^3/uL (4.4-10.8)
[2022-08-07 06:32] LABS: BUN/Creatinine Ratio 8.3; Bilirubin, Total 5.9 mg/dL (0.2-1.0); Total Protein 5.6 g/dL (6.4-8.2)
[2022-08-07 06:34] LABS: INR 1.76 (0.9-1.15); Partial Thromboplastin Time 35.8 sec (24.6-33.4)
[2022-08-07] MEDS: SODIUM CHLOR 0.9% PF (SALINE LOCK) 10ML VIAL/SYR IV SCH ×2 (06:38→14:00)
[2022-08-07 07:05] LABS: Hemoglobin 6.3 g/dL (12.2-16.2)
[2022-08-07] MEDS: FAMOTIDINE (10MG/ML) 2ML VL IV SCH (09:21)
[2022-08-07] MEDS: THIAMINE 100mg/ml INJ (200mg/2ml VIAL) IV SCH (09:21)
[2022-08-07] MEDS: FOLIC ACID 1 MG in D5W 5% 50 ML INJ SCH (09:21)
[2022-08-07] MEDS: rifAXIMin 550 MG TAB PO SCH (09:21)
[2022-08-07] MEDS ORDERED: FUROSEMIDE 20 MG TAB PO SCH (13:45)
[2022-08-07] MEDS ORDERED: PANT40T PO (15:32)
[2022-08-07] MEDS ORDERED: MID10T PO (15:32)
[2022-08-07] MEDS ORDERED: LACT10SO3 PO (15:32)
[2022-08-07] MEDS ORDERED: RIFA550T PO (15:33)
[2022-08-07] MEDS ORDERED: MULTTAB99 PO (15:33)
[2022-08-07] MEDS ORDERED: SPIR25TA8 PO (15:33)
[2022-08-07] MEDS: HYDROcodone-ACET 5/325MG TAB PO PRN (19:52)
[2022-08-07] MEDS ORDERED: POTASSIUM CHL 20 Meq TABLET PO SCH (22:00)
[2022-08-08] MEDS ORDERED: PANTOPRAZOLE 40 MG TAB PO SCH (10:00)
== END 2022-08-07 20:30 | disposition home or self-care (01) | DRG 280 ==
LOC: ER 18:50 → TELE 08-06 00:51 → TELE-WESTW 08-06 22:55
PROVIDERS: ADMIT Nurse Practitioner Family; ATTEND Hospitalist
PROC: 30233N1 Transfusion of Nonautologous Red Blood Cells into Peripheral Vein, Percutaneous Approach (ICD-10-PCS; 2022-08-05)
PROC: 0W9G3ZZ Drainage of Peritoneal Cavity, Percutaneous Approach (ICD-10-PCS; principal; 2022-08-07)
DX: K70.31 Alcoholic cirrhosis of liver with ascites (principal); K70.11 Alcoholic hepatitis with ascites; D68.9 Coagulation defect, unspecified; E87.2 Acidosis; D64.9 Anemia, unspecified; E88.09 Other disorders of plasma-protein metabolism, not elsewhere classified; E87.6 Hypokalemia; I51.7 Cardiomegaly; Z87.442 Personal history of urinary calculi; Z91.19 Patient's noncompliance with other medical treatment and regimen; Z20.822 Contact with and (suspected) exposure to COVID-19; F10.21 Alcohol dependence, in remission; Y90.0 Blood alcohol level of less than 20 mg/100 ml
CPT/HCPCS: 36415; 36430; 71045; 74176; 76700; 76942; 80053; 80307; 80320; 81001; 82140; 83605; 83690; 83735; 83880; 84702; 85014; 85018; 85025; 85610; 85730; 86850; 86900; 86901; 86920; 87205; 89051; 96365; 96367; 99291; G0378; J0696; J3480; J3490; J7060; P9047; Q0162

== ENCOUNTER 2024-06-13 18:22 | Inpatient (IN) | payer MEDICAID ==
[~2024-06-13] VITALS: Ht 157.5 cm; Wt 89.6 kg
[2024-06-13] MEDS: SODIUM CHLORIDE 0.9% 1,000 ML IV SCH
[~2024-06-13 18:22] MED LIST changes: -FOLI1TAB6 PO; +GABA-1250 PO; -GABA300C10 PO; +MULTTAB99 PO; +RIFA550T PO; +SPIR25TA8 PO
[2024-06-13 19:18] LABS: Basophils # (auto) 0.2 10 ^3/uL (0-0.2); Eosinophils # (auto) 0.1 10 ^3/uL (0-0.8); Lymphocytes # (auto) 1.7 10 ^3/uL (0.4-5.4)
[2024-06-13 19:22] LABS: Basophils % (auto) 2.4 % (0.0-2.0); Hematocrit 13.3 % (36.0-46.0); Lymphocytes % (auto) 24.9 % (10.0-50.0); Mean Corpuscular Hemoglobin 26.8 pg (28.0-32.0); Monocytes # (auto) 0.7 10 ^3/uL (0-1.3); Monocytes % (auto) 9.8 % (0.0-12.0); Neutrophils # (auto) 4.2 10 ^3/uL (1.6-8.6); Neutrophils % (auto) 61.9 % (37.0-80.0); Nucleated Red Blood Cells % 1.1 %; Red Blood Cells 1.58 10^6/uL (4.0-5.20); White Blood Cell 6.9 10^3/uL (4.4-10.8)
[2024-06-13 19:27] LABS: Alanine Aminotransferase 79 U/L (7-40); Albumin 2.8 g/dL (3.2-4.8); Alkaline Phosphatase 77 U/L (46-116); Anion Gap 9 (5-15); Aspartate Aminotransferase 129 U/L (13-40); BUN/Creatinine Ratio 9.7 (10.0-20.0); Bilirubin, Total 4.6 mg/dL (0.2-1.0); Blood Urea Nitrogen 6 mg/dL (9-23); Calcium 7.5 mg/dL (8.7-10.4); Carbon Dioxide 23 mmol/L (20-30); Chloride 102 mmol/L (98-107); Glucose 124 mg/dL (74-106); Lipase 38 U/L (12-53); Red Cell Distribution Width 21.3 % (11.8-14.3); Sodium 134 mmol/L (136-145); Total Protein 5.5 g/dL (5.7-8.2)
[2024-06-13 19:29] LABS: Hemoglobin 4.2 g/dL (12.2-16.2)
[2024-06-13 19:30] VITALS: PULSE 100; RESP 14; O2SAT 100
[2024-06-13 19:35] LABS: Lactic Acid w/Reflex 3.7 mmol/L (0.4-2.0); Potassium 2.5 mmol/L (3.5-5.1)
[2024-06-13] MEDS: POTASSIUM EFFERVESENT TAB 25 MEQ PO ONE (21:06)
[2024-06-13] MEDS: POTASSIUM CHL 20MEQ/100ML 100 ML IV SCH (21:25)
[2024-06-13] MEDS: SODIUM CHLORIDE 0.9% 1,000 ML IV ONE (21:46)
[2024-06-13] MEDS ORDERED: ONDANSETRON HCL 4 MG/2 ML VIAL IV PRN (22:45)
[2024-06-13] MEDS ORDERED: HYDROcodone-ACET 5/325MG TAB PO PRN (22:45)
[2024-06-13] MEDS ORDERED: DOCUSATE SOD 100 MG CAP PO PRN (22:45)
[2024-06-13] MEDS ORDERED: IBUPROFEN 600 MG TAB PO PRN (22:45)
[2024-06-13] MEDS ORDERED: NITROGLYCERIN 0.4 MG SL TAB SL PRN (23:45)
[2024-06-13] MEDS ORDERED: MORPHINE SULFATE INJ 2 MG/ml SYRG IV PRN (23:45)
[2024-06-14] VITALS (12 sets, daily range): BP systolic 94–110; BP diastolic 36–54; PULSE 78–116; RESP 16–19; TEMP 97.9–98.6; O2SAT 95–98
[2024-06-14] MEDS: CALCIUM GLUC 1,000mg/50ml-NS 50 ML IV ONE (00:15)
[2024-06-14] MEDS: ALBUMIN 25% 100 ML IV ONE (00:36)
[2024-06-14] MEDS: LACTULOSE 20Gm/30ML SOLN PO ONE (05:30)
[2024-06-14] MEDS: MIDODRINE HCL 10 MG TAB PO SCH (06:02)
[2024-06-14 06:04] LABS: Basophils # (auto) 0.1 10 ^3/uL (0-0.2); Eosinophils # (auto) 0.1 10 ^3/uL (0-0.8); Neutrophils # (auto) 2.1 10 ^3/uL (1.6-8.6); Nucleated Red Blood Cells % 0.4 %; White Blood Cell 3.7 10^3/uL (4.4-10.8)
[2024-06-14 06:07] LABS: Basophils % (auto) 2.1 % (0.0-2.0); Eosinophils % (auto) 1.7 % (0.0-7.0); Hematocrit 9.7 % (36.0-46.0); Mean Corpuscular Hemoglobin 26.6 pg (28.0-32.0); Mean Corpuscular Hgb Conc. 31.6 g/dL (32.0-36.0); Mean Corpuscular Volume 84.3 fL (80.0-100.0); Monocytes # (auto) 0.5 10 ^3/uL (0-1.3); Monocytes % (auto) 12.3 % (0.0-12.0); Neutrophils % (auto) 56.9 % (37.0-80.0); Red Blood Cells 1.15 10^6/uL (4.0-5.20)
[2024-06-14 06:15] LABS: Alanine Aminotransferase 56 U/L (7-40); Albumin 2.6 g/dL (3.2-4.8); Alkaline Phosphatase 67 U/L (46-116); Anion Gap 5 (5-15); Aspartate Aminotransferase 92 U/L (13-40); BUN/Creatinine Ratio 17.9 (10.0-20.0); Blood Urea Nitrogen 7 mg/dL (9-23); Calcium 7.3 mg/dL (8.7-10.4); Carbon Dioxide 25 mmol/L (20-30); Chloride 106 mmol/L (98-107); Glucose 116 mg/dL (74-106); Potassium 2.9 mmol/L (3.5-5.1); Sodium 136 mmol/L (136-145)
[2024-06-14 06:16] LABS: Bilirubin, Total 3.4 mg/dL (0.2-1.0); Total Protein 4.4 g/dL (5.7-8.2)
[2024-06-14 06:20] LABS: Hemoglobin 3.1 g/dL (12.2-16.2); Red Cell Distribution Width 21.1 % (11.8-14.3)
[2024-06-14 07:07] LABS: Anisocytosis Slight; Platelet Estimate Decreased
[2024-06-14 07:08] LABS: Tear Drop Cells FEW
[2024-06-14 07:09] LABS: Stomatocytes Many
[2024-06-14 10:05] LABS: Urine Bacteria None Seen /hpf (None Seen)
[2024-06-14 10:30] LABS: Urine Blood Negative /uL (Negative); Urine Clarity Clear (Clear); Urine Color Yellow (Yellow); Urine Protein, UAD Negative (Negative); Urine Specific Gravity 1.012 (1.001-1.035); Urine Urobilinogen 2 mg/dL (Negative); Urine WBC 1 /hpf (0 - 5); Urine pH 6.5 (5.0-9.0)
[2024-06-14] MEDS: SPIRONOLACTONE 25 MG TAB PO SCH (11:02)
[2024-06-14] MEDS: PANTOPRAZOLE 40 MG/10 ML VIAL INJ IV SCH (11:02)
[2024-06-14] MEDS: MULTIPLE VITAMIN TAB PO SCH (11:02)
[2024-06-14] MEDS: LACTULOSE 20Gm/30ML SOLN PO SCH (11:02)
[2024-06-14] MEDS: FUROSEMIDE 20 MG/2 ML VIAL IV ONE (17:59)
[2024-06-15] VITALS (10 sets, daily range): BP systolic 91–108; BP diastolic 35–62; PULSE 65–93; RESP 16–20; TEMP 97.7–98.5; O2SAT 96–100
[2024-06-15 06:17] LABS: Basophils # (auto) 0.1 10 ^3/uL (0-0.2); Eosinophils # (auto) 0.1 10 ^3/uL (0-0.8); Lymphocytes # (auto) 1.1 10 ^3/uL (0.4-5.4); Mean Corpuscular Volume 85.1 fL (80.0-100.0); Monocytes # (auto) 0.4 10 ^3/uL (0-1.3); White Blood Cell 3.8 10^3/uL (4.4-10.8)
[2024-06-15 06:20] LABS: Basophils % (auto) 1.5 % (0.0-2.0); Eosinophils % (auto) 1.9 % (0.0-7.0); Hematocrit 18.3 % (36.0-46.0); Lymphocytes % (auto) 29.8 % (10.0-50.0); Mean Corpuscular Hemoglobin 28.3 pg (28.0-32.0); Mean Corpuscular Hgb Conc. 33.3 g/dL (32.0-36.0); Monocytes % (auto) 10.2 % (0.0-12.0); Neutrophils # (auto) 2.1 10 ^3/uL (1.6-8.6); Neutrophils % (auto) 56.6 % (37.0-80.0); Nucleated Red Blood Cells % 0.8 %; Red Blood Cells 2.15 10^6/uL (4.0-5.20); Red Cell Distribution Width 18.2 % (11.8-14.3)
[2024-06-15 06:52] LABS: Anion Gap 6 (5-15); Carbon Dioxide 24 mmol/L (20-30); Chloride 109 mmol/L (98-107); Potassium 3.2 mmol/L (3.5-5.1); Sodium 139 mmol/L (136-145)
[2024-06-15 06:53] LABS: Calcium 7.6 mg/dL (8.7-10.4)
[2024-06-15 06:58] LABS: Glucose 94 mg/dL (74-106); INR 1.61 (0.9-1.15); Partial Thromboplastin Time 31.3 SEC (24.5-34.5); Prothrombin Time 16.5 sec (9.3-11.8)
[2024-06-15 07:01] LABS: BUN/Creatinine Ratio 11.4 (10.0-20.0); Blood Urea Nitrogen < 5 mg/dL (9-23); Hemoglobin 6.1 g/dL (12.2-16.2)
[2024-06-15 14:07] LABS: % Iron Saturation 13.4 % (15-50)
[2024-06-15] MEDS ORDERED: SPIR25TA8 PO (15:12)
[2024-06-15] MEDS ORDERED: FERR-7 PO (15:12)
[2024-06-15] MEDS ORDERED: LACT10SO3 PO (15:12)
[2024-06-15] MEDS: POTASSIUM EFFERVESENT TAB 25 MEQ PO ONE (15:15)
[2024-06-15 17:34] LABS: Hemoglobin 7.4 g/dL (12.2-16.2)
[2024-06-15 17:36] LABS: Hematocrit 22.2 % (36.0-46.0)
[2024-06-16 09:39] LABS: Hepatitis B Core Total AB Negative (Negative)
[2024-06-16 11:00] LABS: Hepatitis A Ab IgM Negative; Hepatitis A Total Antibody Positive (Negative); Hepatitis B Core IgM Negative
[2024-06-16 11:01] LABS: Hepatitis B Surface Antibody Negative (Negative); Hepatitis B Surface Antigen Negative (Negative); Hepatitis C Antibody Negative (Negative)
[2024-06-16 11:08] LABS: Folate (Folic Acid) 13.32 ng/mL (>5.38)
[2024-06-16] MEDS ORDERED: SODIUM FERR GLUC 62.5MG/5ML 110 ML IV SCH (12:00)
== END 2024-06-15 18:45 | disposition home or self-care (01) | DRG 812 ==
LOC: ER 18:27 → TELE 23:36 → TELE-WESTW 06-14 06:26
PROVIDERS: ADMIT Nurse Practitioner Family; ATTEND Nurse Practitioner Family
PROC: 30233N1 Transfusion of Nonautologous Red Blood Cells into Peripheral Vein, Percutaneous Approach (ICD-10-PCS; principal; 2024-06-14)
DX: D64.9 Anemia, unspecified (principal); E87.1 Hypo-osmolality and hyponatremia; K76.6 Portal hypertension; R18.8 Other ascites; K74.60 Unspecified cirrhosis of liver; K57.30 Diverticulosis of large intestine without perforation or abscess without bleeding; E66.9 Obesity, unspecified; K76.82 Hepatic encephalopathy; D69.6 Thrombocytopenia, unspecified; E87.6 Hypokalemia; K80.20 Calculus of gallbladder without cholecystitis without obstruction; Y90.9 Presence of alcohol in blood, level not specified; F10.20 Alcohol dependence, uncomplicated; Z83.3 Family history of diabetes mellitus; Z68.36 Body mass index [BMI] 36.0-36.9, adult; Z87.442 Personal history of urinary calculi
CPT/HCPCS: 36415; 74176; 76705; 80048; 80053; 80074; 81001; 81025; 82140; 82607; 82728; 82746; 83540; 83550; 83605; 83615; 83690; 84132; 84484; 85014; 85018; 85025; 85045; 85610; 85730; 86038; 86704; 86706; 86708; 86803; 86850; 86870; 86880; 86900; 86901; 86905; 86906; 86922; 87340; 93005; G0378; J2470; J3480; P9047